=== PATIENT | male | born 1995 | race Caucasian/White ===

== ENCOUNTER → 2017-11-16 10:37 | Outpatient (POV) | payer OTHER, SELFPAY | PROVIDERS: Visit Provider Dentist | DX: Z00.00 Encounter for general adult medical examination without abnormal findings (principal) ==

== ENCOUNTER → 2018-01-04 11:24 | Outpatient (POV) | payer OTHER, SELFPAY | PROVIDERS: Visit Provider Dentist | DX: Z00.00 Encounter for general adult medical examination without abnormal findings (principal) ==